=== PATIENT | male | born 1965 | race Caucasian/White ===

== ENCOUNTER 2022-11-23 13:16 | Outpatient (CLI) | payer BC, SELFPAY | END 2022-11-23 13:17 | disposition home or self-care (01) | PROVIDERS: PCP Internal Medicine; Visit Provider Internal Medicine | DX: Z00.00 Encounter for general adult medical examination without abnormal findings (principal); Z13.6 Encounter for screening for cardiovascular disorders; Z12.5 Encounter for screening for malignant neoplasm of prostate | CPT/HCPCS: 80053; 80061; 84153 ==